=== PATIENT | male | born 1980 | race Caucasian/White ===

== ENCOUNTER 2018-02-09 12:49 | Emergency (ER) | payer SELFPAY ==
[~2018-02-09] VITALS: Ht 167.6 cm; Wt 77.1 kg
--- NOTE | 2018-02-09 12:50 | NUR ---
Dr Morris at the bedside for MSE.
[2018-02-09] MEDS ORDERED: LIDOCAINE HCL 2% 20 ML VIAL TP ONE (13:30)
--- NOTE | 2018-02-09 13:31 | NUR ---
Pt left ER for CT.
--- NOTE | 2018-02-09 13:50 | NUR ---
Pt back from CT, resting in bed.
[2018-02-09 13:56] VITALS: BP 133/73
--- NOTE | 2018-02-09 13:56 | NUR ---
Patient discharged to home in stable conditon. Written and verbal after care instructions given. Patient verbalizes understanding of instructions.
== END 2018-02-09 13:58 | disposition home or self-care (01) ==
LOC: ER 12:49
DX: S01.81XA Laceration without foreign body of other part of head, initial encounter (principal); W22.8XXA Striking against or struck by other objects, initial encounter; Y93.89 Activity, other specified; Y92.89 Other specified places as the place of occurrence of the external cause; Y99.8 Other external cause status
CPT/HCPCS: 70450; A4217; A4663

== ENCOUNTER 2021-03-03 08:39 | Emergency (ER) | payer SELFPAY ==
[~2021-03-03] VITALS: Ht 167.6 cm; Wt 101.2 kg
[2021-03-03] MEDS ORDERED: TYLENOL (08:53)
[2021-03-03] MEDS ORDERED: ADVIL (08:53)
--- NOTE | 2021-03-03 09:41 | NUR ---
Patient discharged to home in stable condition. Written and verbal after care instructions given. Patient verbalizes understanding of instructions. Stressed follow up or return to ER for worsening s/s.
== END 2021-03-03 09:43 | disposition home or self-care (01) ==
LOC: ER 08:39
DX: M25.561 Pain in right knee (principal); Z87.442 Personal history of urinary calculi
CPT/HCPCS: A4663